=== PATIENT | male | born 1995 | race Caucasian/White ===

== ENCOUNTER 2022-03-24 22:30 | Emergency (ER) | payer SELFPAY ==
[~2022-03-24] VITALS: Ht 165.1 cm; Wt 83.9 kg
[2022-03-24 22:32] VITALS: BP 118/85
--- NOTE | 2022-03-25 00:30 | NUR ---
PATIENT LEFT WITHOUT BEING SEEN BY DR. GALINDO. NO FURTHER CARE PROVIDED FOR PATIENT.
== END 2022-03-25 00:30 | disposition left against medical advice (07) ==
LOC: MED 22:30
DX: M25.521 Pain in right elbow (principal); Z53.21 Procedure and treatment not carried out due to patient leaving prior to being seen by health care provider
CPT/HCPCS: 73030; 73080